=== PATIENT | male | born 1960 ===

== ENCOUNTER 2019-06-05 17:34 | Outpatient (REF) | payer OTHER, SELFPAY ==
[2019-06-05 21:24] LABS: Abs Immature Grans 0.02 k/cumm (0.0-0.09); HCT 45.4 % (40.0-50.0); HGB 15.2 g/dL (13.5-17.5); Mean Corp. HGB Concentration 33.5 g/dL (32.0-36.0); Mean Corpuscular Hemoglobin 31.2 pg (27.0-33.0); Mean Corpuscular Volume 93.2 fL (80-95); Mean Platelet Volume 10.2 fL (8.0-11.0); Platelet Count 250 x1000/uL (130-400); RBC 4.87 m/cumm (4.50-6.00); RBC Distribution Width 13.6 % (11.8-14.1); White Blood Cell Count 7.59 k/cumm (4.4-10.8)
[2019-06-05 21:37] LABS: Anion Gap 14.5 mmol/L (3-11); BUN 11 mg/dL (7-18); CO2 21.5 mmol/L (21.0-32.0); CREATININE 0.87 mg/dL (0.70-1.30); Calcium 8.8 mg/dL (8.5-10.1); Chloride 100 mmol/L (98-107); Glucose 99 mg/dL (70-100); Potassium 4.2 mmol/L (3.5-5.1); Sodium 136 mmol/L (136-145)
[2019-06-05 21:56] LABS: Absolute Neutrophil Count 4.48 k/cumm (1.2-6.7)
[2019-06-05 21:59] LABS: Absolute Basophil Count 0.08 k/cumm (0.0-0.2); Absolute Eosinophil Count 0.15 k/cumm (0.0-0.7); Absolute Lymphocyte Count 2.66 k/cumm (1.2-3.4); Absolute Monocyte Count 0.23 k/cumm (0.11-0.7); Atypical Lymphocytes % 7
[2019-06-05 22:00] LABS: Diff Comment Manual Differential; RBC Morphology Normal
== END 2019-06-05 17:54 ==
LOC: NCHCN 17:34
PROVIDERS: PCP Registered Nurse; Visit Provider Registered Nurse
DX: R19.7 Diarrhea, unspecified (principal); K92.1 Melena; I10 Essential (primary) hypertension
CPT/HCPCS: 80048; 87505; 83630; 85025; 87324

== ENCOUNTER 2019-08-25 23:07 | Outpatient (REF) | payer OTHER, SELFPAY ==
[2019-08-25 21:32] LABS: ALT 38 U/L (16-63); AST 27 U/L (15-37); Albumin 3.7 g/dL (3.4-5.0); Alkaline Phosphatase 122 U/L (46-116); Bilirubin, Total 0.3 mg/dL (0.2-1.0); Calculated LDL 193 mg/dL; Cholesterol 253 mg/dL (<200); HDL Cholesterol 33 mg/dL (40-60); Total Protein 8.5 g/dL (6.4-8.2); Triglyceride 135 mg/dL (<150)
== END 2019-08-25 23:27 ==
LOC: NCHCN 23:07
PROVIDERS: PCP Registered Nurse; Visit Provider Registered Nurse
DX: Z00.00 Encounter for general adult medical examination without abnormal findings (principal); F10.10 Alcohol abuse, uncomplicated; E66.9 Obesity, unspecified; Z13.220 Encounter for screening for lipoid disorders
CPT/HCPCS: 80061; 80076

== ENCOUNTER 2021-02-17 10:04 | Outpatient (REF) | payer OTHER, SELFPAY ==
[2021-02-17 20:50] LABS: ALT 96 U/L (16-63); AST 55 U/L (15-37); Albumin 3.6 g/dL (3.4-5.0); Alkaline Phosphatase 134 U/L (46-116); Anion Gap 12.6 mmol/L (3-11); BUN 10 mg/dL (7-18); Bilirubin, Total 0.5 mg/dL (0.2-1.0); CO2 23.4 mmol/L (21.0-32.0); CREATININE 0.8 mg/dL (0.70-1.30); Calculated LDL 169 mg/dL (<100); Chloride 103 mmol/L (98-107); Cholesterol 228 mg/dL (<200); Glucose 107 mg/dL (74-106); HDL Cholesterol 40 mg/dL (40-60); Potassium 3.9 mmol/L (3.5-5.1); Sodium 139 mmol/L (136-145); Total Protein 8.2 g/dL (6.4-8.2); Triglyceride 96 mg/dL (<150)
== END 2021-02-17 10:05 | disposition home or self-care (01) ==
LOC: NCHCN 10:04
PROVIDERS: PCP Registered Nurse; Visit Provider Registered Nurse
DX: E78.5 Hyperlipidemia, unspecified (principal); I10 Essential (primary) hypertension; E66.9 Obesity, unspecified
CPT/HCPCS: 80053; 80061